=== PATIENT | female | born 1995 | race Caucasian/White ===

== ENCOUNTER 2024-05-27 16:40 | Outpatient (CLI) | payer OTHER | END 2024-05-27 19:04 | disposition home or self-care (01) | LOC: MCT 16:40 | PROVIDERS: ATTEND Obstetrics & Gynecology | DX: R51.9 Headache, unspecified (principal); R40.4 Transient alteration of awareness; R10.2 Pelvic and perineal pain | CPT/HCPCS: 70450; 76856 ==